=== PATIENT | female | born 1950 | race Caucasian/White ===

== ENCOUNTER 2023-04-20 07:42 | Day surgery (SDC) | payer MEDICARE ==
[~2023-04-20 07:42] MED LIST: Propofol 200 MG/20 ML SDV ONE; fentaNYL 100 MCG/2 ML SDV ONE
[2023-04-20] MEDS: Lactated Ringers 1,000 ML IV SCH (08:03)
[2023-04-20] MEDS ORDERED: Propofol 200 MG/20 ML SDV ONE (09:58)
== END 2023-04-20 12:03 | disposition home or self-care (01) ==
LOC: VM.SDS 07:42
PROVIDERS: ATTEND Student in an Organized Health Care Education/Training Program
DX: D12.0 Benign neoplasm of cecum (principal); D12.3 Benign neoplasm of transverse colon; E78.00 Pure hypercholesterolemia, unspecified; M85.80 Other specified disorders of bone density and structure, unspecified site; Z98.890 Other specified postprocedural states; Z79.899 Other long term (current) drug therapy; Z90.49 Acquired absence of other specified parts of digestive tract
CPT/HCPCS: 00811; 88305; J2704; J3010; J7120